=== PATIENT | male | born 1995 | race Caucasian/White ===

== ENCOUNTER 2017-01-02 09:23 | Day surgery (SDC) | payer BC ==
--- NOTE | ~2017-01-02 | OP ---
Record Of Operation [facility] [address] [place]. [address] NAME: CHAZ CONTRERAS : 89 STATUS : [facility]#: [id number] AGE: 21 ADM/REG DATE : 01/02/17 MR#: [id number] REPORT SERV DATE: 01/05/17 DICTATED BY: RUPERTO FORD DATE: 01/02/17 REPORT STATUS : Draft TRANSCRIBED BY: MODL DATE: 01/02/17 DATE OF PROCEDURE: 01/02/2017 KIDNEY PULLER: Nelsy Larson MD PREOPERATIVE DIAGNOSIS: Levoscoliosis. Need for chemotherapy. POSTOPERATIVE DIAGNOSIS: Levoscoliosis. Need for chemotherapy. PROCEDURE: Right internal jugular Port-A-Cath placement. ANESTHESIA: MAC. COMPLICATIONS: None. BLOOD LOSS: Minimal. IV FLUIDS: 600. OPERATIVE DETAILS: The patient was taken to the operative room and placed in supine position. Sedation was achieved by the anesthesiologist. The patient's neck and upper chest was prepped and draped in usual sterile fashion. Local anesthetic was used to anesthetize the right neck and right upper chest. A needle was passed under direct visualization with the ultrasound into the right internal jugular vein. Good dark blood returned. A wire was advanced easily. Using fluoroscopy, we noted the wire was in correct placement in the superior vena cava. The wire was then secured to the bed. Skin incision in the right upper chest was made with a scalpel and deepened through the subcutaneous tissues with Bovie electrocautery. A subcutaneous pocket was made to size appropriate for the port. The port was then placed into the subcutaneous pocket. Attention was then turned to the neck. An 11 blade scalpel was used to make a small incision at the wire insertion site. The dilator was then placed over the wire, and the wire and obturator were removed, and the catheter was inserted through the peel-away sheath. The peel-away sheath was then removed and the catheter was then positioned at the right atriocaval junction on fluoroscopy. The catheter was then tunneled through the subcutaneous tissues to the right upper chest and attached to the port. The lock was applied and the port was sutured in the pocket and secured to the pectoral fascia. The skin was closed with interrupted 3-0 Vicryl. Steri-Strips and a sterile dressing were applied. The patient tolerated the procedure well and was taken to the postanesthesia care unit in stable condition. DICTATED BY: MD SADIA Messer/MALICK Ruperto Ford M.D. Record Of [address] [address] NAME: CHAZ CONTRERAS : 89 STATUS : [facility] PAT#: [id number] AGE: 21 ADM/REG DATE : 01/02/17 MR#: [id number] REPORT SERV DATE: 01/05/17 DICTATED BY: RUPERTO FORD DATE: 01/02/17 REPORT STATUS : Draft TRANSCRIBED BY: MALICK DATE: 01/02/17 / [id number] CC: Kacey Weiss Nathan
[~2017-01-02 09:23] MED LIST: ADVIL PO
== END 2017-01-02 15:53 | disposition home or self-care (01) ==
LOC: SDC 09:23
PROVIDERS: Specialist
PROC: 0JHD0XZ Insertion of Tunneled Vascular Access Device into Right Upper Arm Subcutaneous Tissue and Fascia, Open Approach (ICD-10-PCS; principal; 2017-01-02 10:45)
DX: M41.80 Other forms of scoliosis, site unspecified (principal); I87.8 Other specified disorders of veins; Z85.47 Personal history of malignant neoplasm of testis
CPT/HCPCS: 71010; 76000; C1788; J0690; J2250; J3010

== ENCOUNTER 2017-01-28 23:25 | Emergency (ER) | payer BC ==
[2017-01-29 00:48] LABS: ASCORBIC ACID (UR NOT ORDER) NEG (NEG); BILIRUBIN, URINE NEGATIVE (NEG); ER URINALYSIS TAT 0 Hrs 00 Mins; KETONE, URINE NEGATIVE (NEG); LEUKOCYTE ESTERASE(NOT OR NEG (NEG); NITRITE (URINE) NEG (NEG); WBC (NOT ORDERED) (RFLEX) 1 (0-5)
[2017-01-29 00:49] LABS: BASOPHILS 0 %; EOSINOPHILS 0.5 %; EOSINOPHILS ABSOLUTE 0.01 10/3/uL (0.0-0.53); HEMOGLOBIN 11.5 g/dL (13.6-17.8); LYMPHOCYTES 77.3 %; MEAN CORPUS HGB CONC 33.6 g/dL (32.0-36.0); MEAN PLATELET VOLUME 8.1 fL (9.2-13.0); MONOCYTES 21.1 %; MONOCYTES ABSOLUTE 0.41 10/3/uL (0.21-1.20); NEUTROPHILS 1.1 %; NEUTROPHILS ABSOLUTE 0.02 10/3/uL (2.02-8.40); RBC DISTRIBUTION WIDTH 11.4 % (12.0-16.0); RED CELL COUNT 3.97 10/6/uL (4.7-6.1)
[2017-01-29 00:50] LABS: ER CBC TAT 0 Hrs 00 Mins; HEMATOCRIT 34.2 % (40.0-51.0); MEAN CORPUSCULAR VOLUME 86.1 fL (80-100); PLATELET COUNT 66 10/3/uL (150-400); WHITE BLOOD CELLS 1.9 10/3/uL (4.5-10.5)
[2017-01-29 00:51] LABS: MANUAL DIFF NO %
[2017-01-29 00:58] LABS: ALBUMIN 4.1 G/DL (3.5-5.0); ALKALINE PHOSPHATASE 72 U/L (45-117); BUN (BLOOD UREA NITROGEN) 9 MG/DL (6-23); CALCIUM, SERUM 8.8 MG/DL (8.5-10.4); CHLORIDE, SERUM 104 MMOL/L (96-112); CO2 (CARBON DIOXIDE) 31 MMOL/L (24-34); CREATININE 0.88 MG/DL (0.70-1.30); GFR AFRICAN AMERICAN 143 ML/MIN (>=60); GFR NON AFRICAN AMERICAN 124 ML/MIN (>=60); GLUCOSE, SERUM 85 MG/DL (60-99); POTASSIUM, SERUM 3.7 MMOL/L (3.5-5.3); SGOT(AST) 16 U/L (5-40); SGPT(ALT) 37 U/L (5-65); SODIUM, SERUM 142 MMOL/L (135-148); TOTAL BILIRUBIN 0.3 MG/DL (0-1.2); TOTAL PROTEIN 8.1 G/DL (6.0-8.5)
[2017-01-29 01:48] LABS: ER DIFF TAT 0 Hrs 58 Mins; LYMPHOCYTES 89 %; LYMPHOCYTES ABSOLUTE (CALC) 1.69 10/3/uL (0.67-4.30); MONOCYTES 10 %; MONOCYTES ABSOLUTE (CALC) 0.19 10/3/uL (0.21-1.20); NEUTROPHILS ABSOLUTE (CALC) 0.02 10/3/uL (2.02-8.40); SEGMENTED NEUTROPHIL (0) 1 %; TOTAL NUCLEATED CELLS 100
[2017-01-29 01:49] LABS: PLATELET ESTIMATE DEC (ADEQUATE); RBC MORPHOLOGY NORM (NORMAL)
== END 2017-01-29 02:24 | disposition home or self-care (01) ==
LOC: ER 23:25
PROVIDERS: Emergency Medicine
DX: J02.9 Acute pharyngitis, unspecified (principal); D70.9 Neutropenia, unspecified; R50.81 Fever presenting with conditions classified elsewhere; C62.90 Malignant neoplasm of unspecified testis, unspecified whether descended or undescended; Z88.8 Allergy status to other drugs, medicaments and biological substances; D69.6 Thrombocytopenia, unspecified
CPT/HCPCS: 80053; 81001; 85025; 87040; 87070; 87077; 87186; 87880; 96374; 99283; A9270-GY